=== PATIENT | female | born 1995 | race Caucasian/White ===

== ENCOUNTER 2021-06-14 15:55 | Outpatient (CLI) | payer OTHER | END 2021-06-14 16:25 | disposition home or self-care (01) | LOC: NST 15:55 | PROVIDERS: ATTEND Obstetrics & Gynecology | DX: Z34.83 Encounter for supervision of other normal pregnancy, third trimester (principal) ==

== ENCOUNTER 2021-06-17 04:27 | Inpatient (IN) | payer OTHER ==
[~2021-06-17] VITALS: Ht 167.6 cm; Wt 70.3 kg
[2021-06-17] MEDS ORDERED: PRENATAL TABLE1 EAC1 PO (05:04)
== END 2021-06-19 11:56 | disposition home or self-care (01) | DRG 805 ==
LOC: LDR 04:27 → OB/GYN 04:27
PROVIDERS: ADMIT Obstetrics & Gynecology; ATTEND Obstetrics & Gynecology
PROC: 10E0XZZ Delivery of Products of Conception, External Approach (ICD-10-PCS; principal; 2021-06-17)
PROC: 10907ZC Drainage of Amniotic Fluid, Therapeutic from Products of Conception, Via Natural or Artificial Opening (ICD-10-PCS; 2021-06-17)
PROC: 4A1HXFZ Monitoring of Products of Conception, Cardiac Rhythm, External Approach (ICD-10-PCS; 2021-06-17)
DX: O98.52 Other viral diseases complicating childbirth (principal); U07.1 COVID-19; Z37.0 Single live birth; Z3A.40 40 weeks gestation of pregnancy